=== PATIENT | male | born 1960 | race Two or more races ===

== ENCOUNTER 2017-09-19 07:05 | Emergency (ER) | payer MEDICAID ==
[~2017-09-19] VITALS: Ht 180.3 cm; Wt 65.8 kg
[2017-09-19 07:37] VITALS: BP 116/68
== END 2017-09-19 08:01 | disposition home or self-care (01) ==
LOC: ER 07:13
DX: B86 Scabies (principal); F17.210 Nicotine dependence, cigarettes, uncomplicated; W57.XXXA Bitten or stung by nonvenomous insect and other nonvenomous arthropods, initial encounter; Y93.89 Activity, other specified; Y92.89 Other specified places as the place of occurrence of the external cause; Y99.8 Other external cause status

== ENCOUNTER 2017-09-27 06:54 | Emergency (ER) | payer MEDICAID ==
[~2017-09-27] VITALS: Ht 180.3 cm; Wt 65.8 kg
[2017-09-27 07:09] VITALS: BP 126/80
== END 2017-09-27 08:54 | disposition home or self-care (01) ==
LOC: ER 06:54
DX: B86 Scabies (principal); F17.210 Nicotine dependence, cigarettes, uncomplicated; Z20.7 Contact with and (suspected) exposure to pediculosis, acariasis and other infestations

== ENCOUNTER 2024-05-29 12:32 | Inpatient (IN) | payer MEDICAID ==
[~2024-05-29] VITALS: Ht 180.3 cm; Wt 80.4 kg
[~2024-05-29 12:32] MED LIST: ACET650T12 PO; ATOR20TA50 PO; TAMS0.4C39 PO
[2024-05-29 13:45] LABS: Basophils # (auto) 0.1 10 ^3/uL (0-0.2); Basophils % (auto) 0.5 % (0.0-2.0); Eosinophils # (auto) 0 10 ^3/uL (0-0.8); Eosinophils % (auto) 0.1 % (0.0-7.0); Hemoglobin 15.3 g/dL (13.5-17.5); Lymphocytes # (auto) 1.1 10 ^3/uL (0.4-5.4); Lymphocytes % (auto) 7.1 % (10.0-50.0); Mean Corpuscular Hemoglobin 33.3 pg (28.0-32.0); Mean Corpuscular Hgb Conc. 34.8 g/dL (32.0-36.0); Mean Corpuscular Volume 95.7 fL (80.0-100.0); Monocytes # (auto) 1.5 10 ^3/uL (0-1.3); Monocytes % (auto) 9.5 % (0.0-12.0); Neutrophils # (auto) 12.7 10 ^3/uL (1.6-8.6); Neutrophils % (auto) 82.8 % (37.0-80.0); Platelet Count (auto) 254 10^3/uL (140-450); Red Blood Cells 4.59 10^6/uL (4.5-5.90); Red Cell Distribution Width 11.9 % (11.8-14.3); White Blood Cell 15.3 10^3/uL (4.4-10.8)
[2024-05-29 13:48] LABS: Urine Bacteria FEW /hpf (None Seen); Urine Blood 2+ /uL (Negative); Urine Color Yellow (Yellow); Urine Mucus MODERATE (None Seen); Urine Protein, UAD 2+ (Negative); Urine Urobilinogen 2 mg/dL (Negative); Urine WBC 407 /hpf (0 - 3); Urine WBC Clumps PRESENT /hpf (None Seen)
[2024-05-29 13:50] LABS: Urine Clarity Cloudy (Clear)
[2024-05-29 13:53] LABS: Chloride 98 mmol/L (98-107); Potassium 3.8 mmol/L (3.5-5.1); Sodium 129 mmol/L (136-145)
[2024-05-29 13:54] LABS: Anion Gap 4 (5-15); Calcium 9.3 mg/dL (8.7-10.4); Carbon Dioxide 27 mmol/L (20-30)
[2024-05-29 13:59] LABS: BUN/Creatinine Ratio 8.5 (10.0-20.0); Blood Urea Nitrogen 9 mg/dL (9-23); Glucose 143 mg/dL (74-106); Lipase 35 U/L (12-53)
[2024-05-29] MEDS: SODIUM CHLORIDE 0.9% 1,000 ML IV ONE ×2 (15:15)
[2024-05-29] MEDS: cefTRIAXone 1GM/50ML D5W 50 ML IV ONE (15:15)
[2024-05-30] VITALS (7 sets, daily range): BP systolic 115–142; BP diastolic 73–92; PULSE 62–107; RESP 15–20; TEMP 97.8–98.8; O2SAT 95–100
[2024-05-30] MEDS ORDERED: HYDROcodone-ACET 5/325MG TAB PO PRN (00:15)
[2024-05-30] MEDS ORDERED: TEMAZEPAM 15 MG CAP PO PRN (00:15)
[2024-05-30] MEDS ORDERED: ACETAMINOPHEN 325 MG TAB PO PRN (00:15)
[2024-05-30] MEDS ORDERED: ONDANSETRON HCL 4 MG/2 ML VIAL IV PRN (00:15)
[2024-05-30 07:32] LABS: Chloride 102 mmol/L (98-107); Potassium 3.5 mmol/L (3.5-5.1); Sodium 133 mmol/L (136-145)
[2024-05-30 07:33] LABS: Anion Gap 5 (5-15); Calcium 9.5 mg/dL (8.7-10.4); Carbon Dioxide 26 mmol/L (20-30)
[2024-05-30 07:38] LABS: BUN/Creatinine Ratio 8.4 (10.0-20.0); Blood Urea Nitrogen 7 mg/dL (9-23); Glucose 123 mg/dL (74-106)
[2024-05-30 10:12] LABS: Basophils # (auto) 0.1 10 ^3/uL (0-0.2); Basophils % (auto) 0.3 % (0.0-2.0); Eosinophils # (auto) 0.1 10 ^3/uL (0-0.8); Eosinophils % (auto) 0.5 % (0.0-7.0); Hematocrit 41.2 % (41.0-53.0); Hemoglobin 14.7 g/dL (13.5-17.5); Lymphocytes # (auto) 1.3 10 ^3/uL (0.4-5.4); Lymphocytes % (auto) 7.9 % (10.0-50.0); Mean Corpuscular Hemoglobin 33.4 pg (28.0-32.0); Mean Corpuscular Hgb Conc. 35.6 g/dL (32.0-36.0); Mean Corpuscular Volume 93.7 fL (80.0-100.0); Monocytes # (auto) 1.3 10 ^3/uL (0-1.3); Monocytes % (auto) 7.7 % (0.0-12.0); Neutrophils # (auto) 14.1 10 ^3/uL (1.6-8.6); Neutrophils % (auto) 83.6 % (37.0-80.0); Platelet Count (auto) 267 10^3/uL (140-450); Red Cell Distribution Width 11.8 % (11.8-14.3); White Blood Cell 16.9 10^3/uL (4.4-10.8)
[2024-05-30] MEDS: DOXYCYCLINE 100 MG TAB/CAP PO ONE (12:34)
[2024-05-30] MEDS: IBUPROFEN 400 MG TAB PO PRN (12:34)
[2024-05-30] MEDS: MORPHINE SULFATE INJ 2 MG/ml SYRG IV PRN (13:23)
[2024-05-30] MEDS ORDERED: cefTRIAXone 1GM/50ML D5W 50 ML IV SCH (15:00)
[2024-05-30] MEDS ORDERED: TAMSULOSIN HYDROCHLORIDE 0.4 MG CAP PO SCH (18:00)
[2024-05-30] MEDS: ENOXAPARIN SOD 40 MG/0.4 ML SYRINGE SC ONE (20:46)
[2024-05-30] MEDS: ATORVASTATIN 20 MG TAB PO SCH (21:33)
[2024-05-30] MEDS: DOXYCYCLINE 100 MG TAB/CAP PO SCH (21:33)
[2024-05-31 05:00] VITALS: BP 103/67; PULSE 86; RESP 18; TEMP 98.9; O2SAT 98
[2024-05-31 07:30] LABS: Basophils # (auto) 0.1 10 ^3/uL (0-0.2); Basophils % (auto) 0.6 % (0.0-2.0); Eosinophils # (auto) 0.4 10 ^3/uL (0-0.8); Eosinophils % (auto) 3.1 % (0.0-7.0); Hemoglobin 14.8 g/dL (13.5-17.5); Lymphocytes # (auto) 1.7 10 ^3/uL (0.4-5.4); Lymphocytes % (auto) 14.9 % (10.0-50.0); Mean Corpuscular Hemoglobin 32.8 pg (28.0-32.0); Mean Corpuscular Hgb Conc. 34.4 g/dL (32.0-36.0); Mean Corpuscular Volume 95.4 fL (80.0-100.0); Monocytes % (auto) 8.5 % (0.0-12.0); Neutrophils # (auto) 8.4 10 ^3/uL (1.6-8.6); Neutrophils % (auto) 72.9 % (37.0-80.0); Platelet Count (auto) 292 10^3/uL (140-450); Red Blood Cells 4.51 10^6/uL (4.5-5.90); White Blood Cell 11.5 10^3/uL (4.4-10.8)
[2024-05-31 07:50] LABS: Alanine Aminotransferase 45 U/L (7-40); Albumin 4.3 g/dL (3.2-4.8); Alkaline Phosphatase 90 U/L (46-116); Anion Gap 3 (5-15); Aspartate Aminotransferase 28 U/L (13-40); BUN/Creatinine Ratio 13.3 (10.0-20.0); Bilirubin, Total 0.5 mg/dL (0.2-1.0); Blood Urea Nitrogen 12 mg/dL (9-23); Calcium 10.1 mg/dL (8.7-10.4); Carbon Dioxide 30 mmol/L (20-30); Chloride 104 mmol/L (98-107); Cholesterol 172 mg/dL (< 200); Glucose 102 mg/dL (74-106); HDL Cholesterol 24 mg/dL (40-59); LDL Cholesterol 102 mg/dL (< 100); Magnesium 2.1 mg/dL (1.6-2.6); Potassium 3.5 mmol/L (3.5-5.1); Sodium 137 mmol/L (136-145); Triglycerides 290 mg/dL (< 150)
[2024-05-31 07:51] LABS: Total Protein 7.4 g/dL (5.7-8.2)
[2024-05-31] MEDS: ENOXAPARIN SOD 40 MG/0.4 ML SYRINGE SC SCH (07:54)
[2024-05-31 08:00] VITALS: PULSE 86; RESP 18; O2SAT 98
[2024-05-31 09:00] VITALS: BP 105/62; PULSE 90; RESP 18; TEMP 98.1; O2SAT 97
[2024-05-31 12:30] VITALS: BP 100/65; PULSE 81; RESP 18; TEMP 97.7; O2SAT 97
[2024-05-31 16:30] VITALS: BP 104/70; PULSE 89; RESP 20; TEMP 97.9; O2SAT 96
[2024-05-31] MEDS ORDERED: DOXY-286 PO (17:28)
[2024-05-31] MEDS ORDERED: ATOR40TA52 PO (17:28)
[2024-05-31] MEDS ORDERED: CIPR500T4 PO (17:28)
[2024-05-31] MEDS ORDERED: CIPROFLOXACIN 400MG/200ML 200 ML IV SCH (22:00)
[2024-05-31] MEDS ORDERED: ATORVASTATIN 20 MG TAB PO SCH (22:00)
[2024-06-01 08:06] LABS: RPR Non Reactive (Non Reactive)
[2024-06-02 09:13] LABS: Hepatitis B Core Total AB Negative (Negative)
[2024-06-02 11:07] LABS: Hepatitis A Total Antibody Positive (Negative); Hepatitis B Surface Antibody Negative (Negative); Hepatitis B Surface Antigen Negative (Negative); Hepatitis C Antibody Negative (Negative)
== END 2024-05-31 18:50 | disposition home or self-care (01) | DRG 720 ==
LOC: ER 12:32 → WEST WING 05-30 00:10 → OVERFLOW 05-30 00:10 → WEST WING 05-30 03:15
PROVIDERS: ADMIT Internal Medicine; ATTEND Internal Medicine
DX: A41.9 Sepsis, unspecified organism (principal); E87.1 Hypo-osmolality and hyponatremia; N39.0 Urinary tract infection, site not specified; N45.3 Epididymo-orchitis; E86.0 Dehydration; F17.210 Nicotine dependence, cigarettes, uncomplicated; R73.9 Hyperglycemia, unspecified; N40.0 Benign prostatic hyperplasia without lower urinary tract symptoms; E78.5 Hyperlipidemia, unspecified; Z98.890 Other specified postprocedural states
CPT/HCPCS: 36415; 74176; 76870; 80048; 80053; 80061; 81001; 83605; 83690; 83735; 84443; 84484; 85025; 86592; 86703; 86704; 86706; 86708; 86803; 87040; 87086; 87088; 87186; 87340; 96365; 96366; 99291; G0378

== ENCOUNTER 2025-07-06 08:32 | Outpatient (CLI) | payer MEDICAID ==
[~2025-07-06 08:32] MED LIST changes: -ATOR20TA50 PO; +ATOR40TA52 PO; +CIPR500T4 PO; +DOXY-286 PO
[2025-07-06] MEDS ORDERED: ALBUTEROL SULF 2.5 MG/0.5ML(0.5%) NEB SOLN ONE (08:41)
== END 2025-07-06 17:00 | disposition home or self-care (01) ==
LOC: RT 08:32
PROVIDERS: ATTEND Internal Medicine Pulmonary Disease
DX: J44.9 Chronic obstructive pulmonary disease, unspecified (principal); R05.3 Chronic cough; R06.9 Unspecified abnormalities of breathing
CPT/HCPCS: 94060; 94727; 94729